=== PATIENT | male | born 1995 | race African-American/Black ===

== ENCOUNTER 2018-10-22 12:27 | Emergency (ER) | payer MEDICAID ==
[~2018-10-22] VITALS: Ht 188 cm; Wt 84.4 kg
--- NOTE | 2018-10-22 13:04 | Emergency Room Report ---
History of Present Illness General Chief Complaint: General Complaint Source: Patient, Family Member Present Illness HPI 23-year-old male presents to the emergency department for syncopal episode yesterday + increased lethargy and fatigue today. He denies pain. Mother accompanied patient's and states that she is really concerned since the second time that he's had a syncopal episode of the course the last 3 months. Both patient and mother report having significant weight loss and decrease in appetite. Patient reports he had a hot flash just prior to syncope yesterday. Patient denies dizziness, palpitations he reports on occasion he has felt some chest tightness. Patient denies fevers, chills, recent illness, recent travel, alcohol or drug use. Patient denies blood in the vomit or stool he denies black tarry stools. Patient reports one episode of vomiting yesterday after experiencing a cold sweat. Patient also reports 2 episodes of loose bowel movement yesterday and today. Mother denies significant past medical family history denies history of blood dyscrasias. He denies joint pain, muscle pain/ aches. Pt. denies dizziness upon standing. Denies palpitations, CP or SOB. Denies new medications or OTC supplements. Denies attempts to loose weight. Allergies: Coded Allergies: No Known Allergies (Unverified , 10/22/18) Patient History Past Medical History: see triage record Past Surgical History: none Pertinent Family History: none Reviewed Nursing Documentation: PMH: Agreed; PSxH: Agreed Nursing Documentation-PM Past Medical History: No Stated History Review of Systems All Other Systems: negative except mentioned in HPI Physical Exam Vital Signs Date Time Temp Pulse Resp B/P (MAP) Pulse Ox O2 Delivery O2 Flow Rate FiO2 10/22/18 12:35 97.9 69 20 133/61 97 Room Air Sp02 EP Interpretation: reviewed, normal General Appearance: no apparent distress, alert, GCS 15, non-toxic, thin Head: normocephalic, atraumatic Eyes: bilateral eye normal inspection, bilateral eye PERRL ENT: hearing grossly normal, normal voice Neck: full range of motion, thyroid normal Respiratory: chest non-tender, lungs clear, normal breath sounds, no respiratory distress, no wheezing, speaking full sentences Cardiovascular #1: regular rate, rhythm Gastrointestinal: normal bowel sounds, non tender, soft, non-distended, no guarding Genitourinary: normal inspection Musculoskeletal: back normal, gait/station normal, normal range of motion, non- tender Neurologic: alert, oriented x3, responsive, motor strength/tone normal, sensory intact, normal gait, speech normal, grossly normal Psychiatric: judgement/insight normal Skin: normal color, warm/dry, well hydrated, rash - Multiple hyperpigmented plaques some of which are confluent along the posterior neck and migrates anteriorly to the upper portion of the anterior chest. No blisters or vesicles no sloughing of the skin. Mild white sheen over several plaques noted. No excoriations. No bleeding, crusting or purulence noted. Lymphatic: no adenopathy Medical Decision Making PA Attestation Dr. ePterson is my supervising Physician whom patient management has been discussed with. Diagnostic Impression: Primary Impression: Syncopal episodes Qualified Codes: R55 - Syncope and collapse ER Course 23-year-old male presents to the emergency department for syncopal episode yesterday + increased lethargy and fatigue today. He denies pain. Mother accompanied patient's and states that she is really concerned since the second time that he's had a syncopal episode of the course the last 3 months. Both patient and mother report having significant weight loss and decrease in appetite. Patient reports he had a hot flash just prior to syncope yesterday. Patient denies dizziness, palpitations he reports on occasion he has felt some chest tightness. Patient denies fevers, chills, recent illness, recent travel, alcohol or drug use. Patient denies blood in the vomit or stool he denies black tarry stools. Patient reports one episode of vomiting yesterday after experiencing a cold sweat. Patient also reports 2 episodes of loose bowel movement yesterday and today. Mother denies significant past medical family history denies history of blood dyscrasias. He denies joint pain, muscle pain/ aches. Pt. denies dizziness upon standing. Denies palpitations, CP or SOB. Denies new medications or OTC supplements. Denies attempts to loose weight. Ddx considered but are not limited to dysrhythmia, methamphetamine, hypoglycemia , hypovolemia, , intracranial process, vasovagal. Vital signs: are WNL, pt. is afebrile H&PE are most consistent with syncopal episode will do labs and ekg. ORDERS: -Accu Check: 83 -12-lead EK NSR -CBC, CMP: unremarkable -UDS: negative -Type and Screen: A Positive - TSH, Free T3/T4: WNL -Ortho-Static VS: Negative ED INTERVENTIONS: -1000 mL normal saline bolus IV -I do not identify an emergent condition at this time. With current presentation , pt. is stable for close outpatient follow up and conservative treatment. D/ w pt. to return promptly to ED with worsening or new symptoms.- Pt. verbalizes' understanding and agreement with proposed treatment plan. DISCHARGE: At this time pt. is stable for d/c to home. Will provide printed patient care instructions, and any necessary prescriptions. Care plan and follow up instructions have been discussed with the patient prior to discharge. Labs Test 10/22/18 13:15 White Blood Count 3.2 K/UL (4.8-10.8) Red Blood Count 5.26 M/UL (4.70-6.10) Hemoglobin 15.7 G/DL (14.2-18.0) Hematocrit 47.7 % (42.0-52.0) Mean Corpuscular Volume 91 FL (80-99) Mean Corpuscular Hemoglobin 29.9 PG (27.0-31.0) Mean Corpuscular Hemoglobin Concent 33.0 G/DL (32.0-36.0) Red Cell Distribution Width 12.0 % (11.6-14.8) Platelet Count 257 K/UL (150-450) Mean Platelet Volume 7.4 FL (6.5-10.1) Neutrophils (%) (Auto) % (45.0-75.0) Lymphocytes (%) (Auto) % (20.0-45.0) Monocytes (%) (Auto) % (1.0-10.0) Eosinophils (%) (Auto) % (0.0-3.0) Basophils (%) (Auto) % (0.0-2.0) Differential Total Cells Counted 100 Neutrophils % (Manual) 24 % (45-75) Lymphocytes % (Manual) 64 % (20-45) Monocytes % (Manual) 10 % (1-10) Eosinophils % (Manual) 2 % (0-3) Basophils % (Manual) 0 % (0-2) Band Neutrophils 0 % (0-8) Platelet Estimate Adequate Platelet Morphology Normal Red Blood Cell Morphology Normal Urine Color Pale yellow Urine Appearance Clear Urine pH 6 (4.5-8.0) Urine Specific Harris 1.020 (1.005-1.035) Urine Protein Negative (NEGATIVE) Urine Glucose (UA) Negative (NEGATIVE) Urine Ketones Negative (NEGATIVE) Urine Blood Negative (NEGATIVE) Urine Nitrite Negative (NEGATIVE) Urine Bilirubin Negative (NEGATIVE) Urine Urobilinogen Normal MG/DL (0.0-1.0) Urine Leukocyte Esterase Negative (NEGATIVE) Sodium Level 140 MMOL/L (136-145) Potassium Level 3.8 MMOL/L (3.5-5.1) Chloride Level 102 MMOL/L (98-107) Carbon Dioxide Level 31 MMOL/L (21-32) Anion Gap 8 mmol/L (5-15) Blood Urea Nitrogen 13 mg/dL (7-18) Creatinine 1.0 MG/DL (0.55-1.30) Estimat Glomerular Filtration Rate > 60 mL/min (>60) Glucose Level 87 MG/DL (74-106) Calcium Level 9.8 MG/DL (8.5-10.1) Total Bilirubin 0.4 MG/DL (0.2-1.0) Aspartate Amino Transf (AST/SGOT) 14 U/L (15-37) Alanine Aminotransferase (ALT/SGPT) 22 U/L (12-78) Alkaline Phosphatase 41 U/L (46-116) Total Protein 8.3 G/DL (6.4-8.2) Albumin 4.6 G/DL (3.4-5.0) Globulin 3.7 g/dL Albumin/Globulin Ratio 1.2 (1.0-2.7) Lipase 121 U/L (73-393) Thyroid Stimulating Hormone (TSH) 2.477 uiU/mL (0.358-3.740) Free Thyroxine 0.96 NG/DL (0.76-1.46) Free Triiodothyronine 3.2 pg/mL (2.3-4.2) Urine Opiates Screen Negative (NEGATIVE) Urine Barbiturates Screen Negative (NEGATIVE) Phencyclidine (PCP) Screen Negative (NEGATIVE) Urine Amphetamines Screen Negative (NEGATIVE) Urine Benzodiazepines Screen Negative (NEGATIVE) Urine Cocaine Screen Negative (NEGATIVE) Urine Marijuana (THC) Screen Positive (NEGATIVE) EKG Diagnostic Results Rate: normal - 63 Rhythm: NSR ST Segments: no acute changes ASA given to the pt in ED: No PA Scribe Text This Interpretation was scribed by PEDRO Sow. Last Vital Signs Date Time Temp Pulse Resp B/P (MAP) Pulse Ox O2 Delivery O2 Flow Rate FiO2 10/22/18 12:35 97.9 69 20 133/61 97 Room Air Status: improved Disposition: HOME, SELF-CARE Condition: Stable Patient Instructions: Syncope, [id number], Vasovagal Syncope, Adult Additional Instructions: Take medications as directed. Follow up with a Primary Care Provider in 3-5 days, even if your symptoms have resolved. --Please review list of primary care clinics, if you do not already have a primary care provider Return sooner to ED if new symptoms occur, or current symptoms become worse. - Please note that this Emergency Department Report was dictated using [employer] instructor technology software, occasionally this can lead to erroneous entry secondary to interpretation by the dictation equipment. Marbella Sow Oct 22, 2018 13:04
--- NOTE | 2018-10-22 13:12 | NUR ---
ED Nurse Note: PT WALKED IN TO ER TODAY FROM HOME. AOX4. PT STATES HE HAD A WITNESSED SYNCOPAL EPISODE YESTERDAY AND ADDS THAT IT IS THE SECOND EPISODE IN 3 MONTHS. PT STATES HE DID HIT THE LEFT SIDE OF HIS FACE BUT IS UNSURE OF HOW LONG HE WAS OUT. PT DENIES DIZZINESS OR PAIN AT THIS TIME. PT STATES HE HAD ONE EPISODE OF VOMITING X YESTERDAY BUT NONE TODAY.
[2018-10-22 13:16] VITALS: BP_SYST 115; BP_SYST 121; BP_SYST 124; BP_DIAS 56; BP_DIAS 67; BP_DIAS 75
[2018-10-22 13:40] LABS: APPEARANCE,URINE CLEAR; BILIRUBIN, URINE NEGATIVE (NEGATIVE); COLOR,URINE PALE YELLOW; GLUCOSE, URINE (UA) NEGATIVE (NEGATIVE); HEMATOCRIT 47.7 % (42.0-52.0); HEMOGLOBIN 15.7 G/DL (14.2-18.0); KETONES,URINE NEGATIVE (NEGATIVE); LEUKOCYTE ESTERASE ,URINE NEGATIVE (NEGATIVE); MEAN CORPUSCULAR VOLUME 91 FL (80-99); NITRITE,URINE NEGATIVE (NEGATIVE); PH,URINE 6 (4.5-8.0); PLATELET COUNT 257 K/UL (150-450); PROTEIN,URINE NEGATIVE (NEGATIVE); RED BLOOD COUNT 5.26 M/UL (4.70-6.10); UROBILINOGEN,URINE NORMAL MG/DL (0.0-1.0); WHITE BLOOD COUNT 3.2 K/UL (4.8-10.8)
[2018-10-22 13:49] LABS: ANION GAP 8 mmol/L (5-15); BLOOD UREA NITROGEN 13 mg/dL (7-18); CALCIUM 9.8 MG/DL (8.5-10.1); CARBON DIOXIDE 31 MMOL/L (21-32); CHLORIDE 102 MMOL/L (98-107); POTASSIUM 3.8 MMOL/L (3.5-5.1); SODIUM 140 MMOL/L (136-145)
[2018-10-22 14:06] LABS: ALANINE AMINOTRANSFERASE 22 U/L (12-78); ALBUMIN 4.6 G/DL (3.4-5.0); ALBUMIN/GLOBULIN RATIO 1.2 (1.0-2.7); ALKALINE PHOSPHATASE 41 U/L (46-116); ASPARTATE AMINO TRANSFERASE 14 U/L (15-37); BILIRUBIN,TOTAL 0.4 MG/DL (0.2-1.0)
[2018-10-22 15:13] VITALS: BP 119/66
--- NOTE | 2018-10-22 15:15 | NUR ---
ED Nurse Note: PT LAYING PEACEFULLY IN BED IN NAD. AOX4. DISCHARGE PAPERWORK EXPLAINED TO PT. PT VERBALIZES UNDERSTANDING AND ALL QUESTIONS ANSWERED. DISCHARGE PAPERWORK GIVEN TO PT, IV AND ID WRISTBAND REMOVED. PT WALKED OUT OF ER WITH STEADY GAIT AND ALL BELONGINGS.
--- NOTE | 2018-10-22 15:17 | NUR ---
Note ty in EDM - 10/22/18 at 1519 by [facility] ER DISCHARGE NOTE: Patient is cleared to be discharged per ERMD, pt is aox4, on room air, with stable vital signs. pt was given dc instructions, pt was able to verbalize understanding, pt id band and iv site removed without complications. pt is able to ambulate with steady gait. pt took all belongings.
--- NOTE | 2018-10-23 15:58 | Cardiology Report ---
APPROVED REPORT EKG Measurement Heart [id number] Normal sinus rhythm Normal ECG
== END 2018-10-22 15:20 | disposition home or self-care (01) ==
LOC: EMR 13:13
DX: R55 Syncope and collapse (principal); R53.83 Other fatigue; R11.10 Vomiting, unspecified; R63.4 Abnormal weight loss; Z68.23 Body mass index [BMI] 23.0-23.9, adult
CPT/HCPCS: 36415; 80053; 80307; 81003; 83690; 84439; 84443; 84481; 85007; 85025; 86850; 86900; 86901; 93005; 96360; 99284